=== PATIENT | female | born 1950 | race Caucasian/White ===

== ENCOUNTER → 2019-08-29 09:34 | Outpatient (CLI) | payer MEDICARE, SELFPAY ==
--- NOTE | 2019-08-29 09:59 | XR_ITS ---
PROCEDURE: XR CHEST 2V CLINICAL HISTORY: COUGH, ACUTE FEBRILE ILLNESS Cough, fever, headache COMPARISON: No exams were available for comparison FINDINGS: The cardiomediastinal silhouette and pulmonary vascularity are within normal limits. Patchy ground-glass density is present in the right upper lobe consistent with pneumonia. There may be minimal atelectasis or infiltrate the left perihilar region. There is mild wedging involving T8 which may be old. IMPRESSION: Ground-glass density in the right upper lobe consistent with pneumonia possibly viral. Atelectasis or patchy infiltrate also in the left perihilar region Dictated by: [place] Avendano MD 08/29/2019 12:13 Electronically signed by [place] Avendano MD in [place] 08/29/2019 12:13
[2019-08-29 10:10] LABS: Basophils % 0.6 % (0.1-2.0); Eosinophils # 0.1 K/mm3 (0.0-0.4); Hematocrit 39.6 % (37.0-47.0); Hemoglobin 12.4 g/dL (12.2-16.2); Lymphocytes # 0.9 K/mm3 (0.7-4.5); Mean Corpuscular HGB Conc 31.4 g/dL (31.8-35.4); Mean Corpuscular Volume 79.7 fl (81-99); Mean Platelet Volume 8.1 fl (7.4-10.4); Monocytes # 0.4 K/mm3 (0.1-1.0); Monocytes % 6.5 % (1.7-9.3); Neutrophils # 4.2 K/mm3 (1.8-7.8); Neutrophils % 75.9 % (37.0-80.0); Platelet Count 215 K/mm3 (142-424); Red Blood Count 4.97 M/mm3 (4.20-5.40); Red Cell Distribution Width 14.4 % (11.5-17.5); White Blood Count 5.6 K/mm3 (4.8-10.8)
[2019-08-29 11:50] LABS: Chloride 102 mmol/L (98-107); Potassium 5.3 mmoL/L (3.5-5.1); Sodium 137 mmol/L (136-145)
[2019-08-29 11:52] LABS: Blood Urea Nitrogen 14 mg/dl (7-17)
[2019-08-29 11:53] LABS: Alanine Aminotransferase 28 U/L (12-78); Albumin Level 3.9 g/dl (3.5-5.0); Albumin/Globulin Ratio 1.4 (1.1-1.8); Alkaline Phosphatase 83 U/L (38-126); Anion Gap 14.3 mEq/L (5-15); Aspartate Amino Transferase 38 U/L (14-36); Bilirubin,Total 0.3 mg/dl (0.2-1.3); Calcium 8.8 mg/dl (8.4-10.2); Carbon Dioxide 26 mmol/L (22.0-30.0); Estimated Glomerular Filt Rate 55 ml/min (>60); GFR (African American) 67 ML/MIN (>60); Globulin 2.7 g/dL (1.3-3.2); Glucose 120 mg/dl (74-100); Total Protein,Serum 6.6 g/dl (6.3-8.2)
== END ==
PROVIDERS: Visit Provider Internal Medicine Adolescent Medicine
DX: R50.9 Fever, unspecified (principal); R05 Cough; Z20.828 Contact with and (suspected) exposure to other viral communicable diseases
CPT/HCPCS: 36415; 71046; 80053; 85025

== ENCOUNTER → 2019-09-26 16:10 | Outpatient (CLI) | payer MEDICARE, SELFPAY ==
[2019-09-27 08:58] LABS: Covid-19 Nasal PCR Sendout Lex DETECTED
--- NOTE | 2019-09-27 09:27 | PC.NURSE ---
NOTIFIED DR. JEAN THAT [facility] REQUESTED ANOTHER COVID TEST. REPORTED POSITIVE TEST RESULTS TO . WILL FAX RESULTS TO [facility] AND HAVE THEM INFORM PATIENT.
--- NOTE | 2019-09-27 14:29 | PC.NURSE ---
Baeu notified patient of POSITIVE Covid-19 results, and further isolation instructions.
== END ==
PROVIDERS: Visit Provider Internal Medicine Adolescent Medicine
DX: Z03.818 Encounter for observation for suspected exposure to other biological agents ruled out (principal)

== ENCOUNTER → 2019-10-10 10:38 | Outpatient (CLI) | payer MEDICARE, SELFPAY ==
[2019-10-11 08:49] LABS: Covid-19 Nasal PCR Sendout Lex NOT DETECTED
--- NOTE | 2019-10-11 09:35 | PC.NURSE ---
notified pt and of negative COVID 19 results.
== END ==
PROVIDERS: Visit Provider Internal Medicine Adolescent Medicine
DX: Z03.818 Encounter for observation for suspected exposure to other biological agents ruled out (principal)
CPT/HCPCS: U0003

== ENCOUNTER 2019-12-02 17:00 | Outpatient (RCR) | payer MEDICARE, OTHER, SELFPAY ==
--- NOTE | 2019-11-09 09:48 | HMH.PTOPEV ---
PT Outpatient Evaluation Rehab PT Outpatient Evaluation Start: 11/09/19 09:28 Freq: Status: Active Protocol: Document 11/09/19 09:28 KHADAR (Rec: 11/09/19 09:48 [email or web address] [id number]) Electronically Signed By Jason Schulz, PT 11/09/19 09:28 Outpatient Therapy Subjective History Subjective History Patient is a 69 year old female presenting to outpatient PT with reports of overall deconditioning S/P COVID-19. She was initially diagnosed 09/05/19 and tested negative multiple times with the last dated 10/11/19. She reports a hx of chronic L knee pain. She was previously receiving injections which provided some significant relief. Her main concern is SOB after prolonged standing/ ambulatory activities. Comorbidities include hx of diabetes, hypothyroidism and HTN. Chief Complaint Pain,Weakness Symptom Type Ache Symptoms Relieved By Rest/Positioning Symptoms Aggravated By Standing,Physical Activity, Walking Prior Functional Limitations None Current Functional Limitations Housework,Standing,Squatting, Recreation Activity,Walking, Stairs,Balance Symptom Description Intermittent Level of pain today (0-10) 0 Pain scale - at its best (0-10) 0 Pain scale - at its worst (0-10) 6 Hip/Knee Eval Gait Observation General Gait Pattern Observation Antalgic Gait,Decrease Weight Bear (L) Assistive Device Assistive Devices None / NA Palpation Tenderness left Knee Palpation Finding Tenderness Knee Palpation Overall Comment medial compartment, patellar tendon 3/4 MMT Hip Flexion Strength Grade 4 Good Hip Abduction Strength Grade 4 Good Hip Adduction Strength Grade 4 Good Hip Extension Strength Grade 4- Good- Hip External Rotation Strength Grade 4 Good Hip Internal Rotation Strength Grade 4- Good- Knee Extension Strength Grade 4 Good Knee Flexion Strength Grade 4 Good ROM bilateral Hip ROM Reason Not Measured Within Functional Limits Knee ROM Reason Not Measured Within Functional Limits Special Tests Hip Trendelenburg Test Positive Left Knee Anterior Rick Test Negative Left Kn
== END 2019-12-02 17:05 | disposition home or self-care (01) ==
LOC: PT 17:00
PROVIDERS: PCP Internal Medicine Adolescent Medicine; Visit Provider Internal Medicine Adolescent Medicine
DX: R53.81 Other malaise (principal)
CPT/HCPCS: 97010; 97014; 97110; 97163; 97535; G0283

== ENCOUNTER → 2020-10-24 09:27 | Outpatient (CLI) | payer MEDICARE, OTHER, SELFPAY ==
[2020-10-24 09:49] LABS: Basophils # 0.1 K/mm3 (0-0.2); Basophils % 0.9 % (0.1-2.0); Eosinophils # 0.3 K/mm3 (0.0-0.4); Eosinophils % 2.8 % (0.1-12.0); Hematocrit 41.4 % (37.0-47.0); Hemoglobin 13.1 g/dL (12.2-16.2); Lymphocytes # 2.9 K/mm3 (0.7-4.5); Lymphocytes % 29.2 % (10-50); Mean Corpuscular HGB Conc 31.6 g/dL (31.8-35.4); Mean Corpuscular Hemoglobin 24.4 pg (27.0-31.2); Mean Corpuscular Volume 77.4 fl (81-99); Mean Platelet Volume 7.5 fl (7.4-10.4); Monocytes # 0.5 K/mm3 (0.1-1.0); Monocytes % 5.5 % (1.7-9.3); Neutrophils # 6.1 K/mm3 (1.8-7.8); Neutrophils % 61.6 % (37.0-80.0); Platelet Count 373 K/mm3 (142-424); Red Blood Count 5.35 M/mm3 (4.20-5.40); Red Cell Distribution Width 14.8 % (11.5-17.5); White Blood Count 9.9 K/mm3 (4.8-10.8)
[2020-10-24 10:45] LABS: Chloride 103 mmol/L (98-107); Potassium 4.5 mmoL/L (3.5-5.1); Sodium 139 mmol/L (136-145)
[2020-10-24 10:47] LABS: Blood Urea Nitrogen 17 mg/dl (7-17); Estimated Glomerular Filt Rate 83 ml/min (>60); GFR (African American) 100 ML/MIN (>60)
[2020-10-24 10:48] LABS: Alanine Aminotransferase 21 U/L (12-78); Albumin Level 4.5 g/dl (3.5-5.0); Albumin/Globulin Ratio 1.6 (1.1-1.8); Alkaline Phosphatase 111 U/L (38-126); Anion Gap 12.5 mEq/L (5-15); Aspartate Amino Transferase 28 U/L (14-36); Bilirubin,Total 0.9 mg/dl (0.2-1.3); Carbon Dioxide 28 mmol/L (22.0-30.0); Globulin 2.9 g/dL (1.3-3.2); Glucose 122 mg/dl (74-100); Total Protein,Serum 7.4 g/dl (6.3-8.2)
[2020-10-24 11:04] LABS: Free Thyroxine Index 7.7 ug/dL (5.93-13.13); T4 (Thyroxine) 20.7 ug/dl (5.53-11.0); Triiodothryronine (T3) Uptake 37 % (23.5-40.5)
[2020-10-24 11:05] LABS: 25-OH Vitamin D, Total 27.5 ng/mL (30-100)
[2020-10-24 11:11] LABS: Hemoglobin A1C 6.1 % (4.0-6.0)
[2020-10-24 11:18] LABS: Thyroid Stimulating Hormone < 0.02 uIU/mL (0.465-4.68)
== END ==
PROVIDERS: Visit Provider Internal Medicine Adolescent Medicine
DX: E11.69 Type 2 diabetes mellitus with other specified complication (principal); E55.9 Vitamin D deficiency, unspecified
CPT/HCPCS: 36415; 80053; 82306; 83036; 84436; 84443; 84479; 85025

== ENCOUNTER → 2020-12-19 12:38 | Outpatient (CLI) | payer MEDICARE, OTHER, SELFPAY ==
--- NOTE | 2020-12-19 14:28 | CT_ITS ---
PROCEDURE: CT CHEST WO CON CLINICAL INDICATION: DYSPNEA,H/O COVID SOA H/o covid in August of 2019 COMPARISON: DX XR CHEST 2V from 08/29/2019 TECHNIQUE: Axial images obtained with sagittal and coronal reformats. All CT scans at the facility use one or more dose reduction, viz: automated exposure control, ma/kV adjustment per patient size (including targeted exams where dose is matched to indication, i.e. head), or iterative reconstruction technique. FINDINGS: HEART AND MEDIASTINAL STRUCTURES: Coronary artery calcifications. No mediastinal or hilar mass. LUNGS AND PLEURAL SPACES: There is an oval 15 x 13 by 8 mm nodule in the anterior aspect of the left lower lobe centrally. A thin spiculation extends from this nodule to the pleural surface laterally and also to the pleural surface of the major fissure anteriorly with some minimal tenting of the fissure. The nodule is noncalcified. The margins are for the most part fairly well-circumscribed. Neoplasm is a consideration. PET CT suggested for further evaluation. Any old CT studies would be helpful as well. There is some slight increased subpleural markings in the lung bases posteriorly nonspecific. No effusions or areas of consolidation evident. BONY STRUCTURES: There are degenerative changes in the thoracic spine. A Schmorl's node is present along the superior endplate of T10 with slight loss of height of T10 age indeterminate. UPPER ABDOMEN: Unremarkable. ADDITIONAL FINDINGS: No other significant abnormalities. IMPRESSION: Suspicious 1.5 cm nodule in the left lower lobe as described above. Suggest PET-CT for further evaluation. Faint increased subpleural markings in the lower lobes posteriorly etiology indeterminate. High-resolution CT may provide further evaluation if clinically warranted. Dictated by: [place] Avendano MD 12/20/2020 07:41 [place] Avendano MD in [place] 12/20/2020 07:41
== END ==
PROVIDERS: PCP Internal Medicine Adolescent Medicine; Visit Provider Internal Medicine Adolescent Medicine
DX: R06.09 Other forms of dyspnea (principal); Z86.16 Personal history of COVID-19
CPT/HCPCS: 71250; 94060; 94726; 94729

== ENCOUNTER → 2021-03-22 08:59 | Outpatient (CLI) | payer MEDICARE, OTHER, SELFPAY ==
--- NOTE | 2021-03-22 09:10 | XR_ITS ---
PROCEDURE: XR DEXA AXIAL SKELETON CLINICAL HISTORY: POST MENOPAUSAL COMPARISON: No exams were available for comparison FINDINGS: The right hip BMD is 0.916 grams/centimeter squared with a T-score of -0.2. The left hip BMD is 0.802 grams/centimeter squared with a T-score of -1.1. The lumbar spine BMD is 0.949 grams/centimeters squared with a T-score of -0.9. IMPRESSION: Normal values right hip and lumbar spine, mild osteopenia left hip Based on these results a follow-up exam is recommended in 2 year. Dictated by: Dr. Tha Rodriguez MD 03/22/2021 15:08 Dr. Tha Rodriguez MD in [place] 03/22/2021 15:08
== END ==
PROVIDERS: PCP Internal Medicine Adolescent Medicine; Visit Provider Internal Medicine Adolescent Medicine
DX: Z13.820 Encounter for screening for osteoporosis (principal); Z78.0 Asymptomatic menopausal state
CPT/HCPCS: 77080

== ENCOUNTER → 2021-04-17 10:28 | Outpatient (CLI) | payer MEDICARE, OTHER, SELFPAY | PROVIDERS: PCP Radiology Diagnostic Radiology; Visit Provider Nurse Practitioner | DX: Z20.822 Contact with and (suspected) exposure to COVID-19 (principal) | CPT/HCPCS: C9803; U0003; U0005 ==

== ENCOUNTER → 2021-04-29 12:43 | Outpatient (CLI) | payer MEDICARE, OTHER, SELFPAY ==
--- NOTE | 2021-04-29 13:02 | XR_ITS ---
PROCEDURE: XR CHEST 2V CLINICAL HISTORY: BRONCHOPNEUMONIA COMPARISON: DX XR CHEST 2V from 08/29/[address] CHEST WO CON from 12/19/2020 FINDINGS: The cardiomediastinal silhouette and pulmonary vascularity are within normal limits. 2 x 1 cm nodule is present in the left mid to lower lung zone as seen on a previous CT scan of 12/19/2020. No lobar consolidation or collapse. No effusions. No acute bony abnormalities. IMPRESSION: No acute finding. 2 x 1 cm left mid to lower lung nodule as seen on previous chest CT for which further follow-up with PET CT was suggested Dictated by: [place] Avendano MD 04/29/2021 13:29 [place] Avendano MD in [place] 04/29/2021 13:29
[2021-04-29 13:22] LABS: Basophils # 0.2 K/mm3 (0-0.2); Basophils % 1.2 % (0.1-2.0); Eosinophils # 0.4 K/mm3 (0.0-0.4); Hematocrit 41.1 % (37.0-47.0); Hemoglobin 13.3 g/dL (12.2-16.2); Lymphocytes # 2.9 K/mm3 (0.7-4.5); Lymphocytes % 21.7 % (10-50); Mean Corpuscular HGB Conc 32.4 g/dL (31.8-35.4); Mean Corpuscular Hemoglobin 25.5 pg (27.0-31.2); Mean Corpuscular Volume 78.7 fl (81-99); Mean Platelet Volume 7.5 fl (7.4-10.4); Monocytes # 0.6 K/mm3 (0.1-1.0); Monocytes % 4.9 % (1.7-9.3); Neutrophils # 9.1 K/mm3 (1.8-7.8); Neutrophils % 69.3 % (37.0-80.0); Platelet Count 444 K/mm3 (142-424); Red Blood Count 5.23 M/mm3 (4.20-5.40); Red Cell Distribution Width 13.8 % (11.5-17.5); White Blood Count 13.2 K/mm3 (4.8-10.8)
[2021-04-29 15:04] LABS: Anion Gap 15.6 mEq/L (5-15); Blood Urea Nitrogen 15 mg/dl (7-17); Calcium 9.3 mg/dl (8.4-10.2); Carbon Dioxide 31 mmol/L (22.0-30.0); Chloride 96 mmol/L (98-107); Estimated Glomerular Filt Rate 71 ml/min (>60); GFR (African American) 86 ML/MIN (>60); Glucose 112 mg/dl (74-100); Potassium 4.6 mmoL/L (3.5-5.1); Sodium 138 mmol/L (136-145)
== END ==
PROVIDERS: Visit Provider Internal Medicine Adolescent Medicine
DX: J18.0 Bronchopneumonia, unspecified organism (principal)
CPT/HCPCS: 36415; 71046; 80048; 85025

== ENCOUNTER 2022-01-31 08:12 | Emergency (ER) | payer MEDICARE, OTHER, SELFPAY ==
[2022-01-31 08:34] VITALS: BP 141/76; PULSE 77; RESP 17; TEMP 36.9; O2SAT 97; BMI 35.5
--- NOTE | 2022-01-31 08:40 | HMH.EDUTC ---
[facility] [place] Clinical Impression: Bronchitis Sinusitis Qualifiers: Sinusitis location: unspecified location Chronicity: acute Recurrence: non-recurrent Qualified Code(s): J01.90 - Acute sinusitis, unspecified Disposition: Home, Self-Care Condition on Discharge: Good Instructions: DI for Sinusitis Additional Instructions: Drink plenty of fluids. Take tylenol or ibuprofen for pain or fever. Take the medications as directed. Follow up with your regular doctor. GO TO THE ER FOR ANY WORSENING SYMPTOMS Don't start the oral steroids until tomorrow, since you had the shot here today. Prescriptions: Benzonatate [Benzonatate 100mg cap] 100 mg PO TIDP PRN #30 cap PRN Reason: Cough Transmission Status: Received by [id number] methylPREDNISolone [Medrol] 4 mg PO DIRECTED 6 Days #21 packet Transmission Status: Received by [id number] Azithromycin [Z-Alan 250mg Tab*] 250 mg PO UD DOSE PK #6 tab Transmission Status: Received by [id number] Referrals: Jeison Chavez MD [Primary Care Provider] - Time of Disposition: 08:49 Medical Decision Making - Medical Records Medical records reviewed: No: I reviewed the patient's medical records. - Ho Inquiry Pt receiving controlled substance: No Vital Signs: 01/31/22 08:34 01/31/22 09:02 Temperature 98.5 F 98.5 F Temperature Source Oral Oral Pulse Rate 74 Pulse Rate [Left Radial] 77 Respiratory Rate 17 16 Blood Pressure 140/77 Blood Pressure [Right Arm] 141/76 H Blood Pressure Mean [Right Arm] 97 02 Sat by Pulse Oximetry 97 Oxygen Delivery Method Room Air Room Air Orders (Tests/Meds): ED MEDICATIONS Discontinued Medications Generic Name Dose Route Start Last Admin Trade Name Freq PRN Reason Stop Dose Admin Methylprednisolone Sodium Succinate 125 mg 01/31/22 08:44 01/31/22 08:58 Methylprednisolone Sod Succ 125mg Vial IM 01/31/22 08:45 125 mg ONCE ONE Administration [facility] [place] - General Stated complaint: congested,runny nose,headache Time Seen by Provider: 01/31/22 08:45 Mode of Arrival: Ambulatory Source of Information: Patient Limitations: No Limitations Description of Symptoms (Recalled from Triage Doc. by RN): pt to [facility] c/o congestion, non-productive cough and nasal pressure x 2 weeks. HEENT Symptoms (Recalled from RN notes): Yes Resp Symptoms (Recalled from RN notes): Yes Skin Symptoms (Recalled from RN notes): No MS Symptoms (Recalled from RN notes): No Functional Status (Recalled from RN notes): na - History of Present Illness Provider Complaint: She states that for the past 2 weeks she has had sinus congestion and a cough. She denies any fever or chills. - Related Data Home Medications Medication Instructions Recorded Confirmed metformin 500 mg tablet,extended PO 90 Days 10/07/17 08/09/21 release 24 hr acyclovir 800 mg tablet 800 mg PO PRN tab 08/09/21 08/09/21 gabapentin 100 mg capsule 100 mg PO DAILY PRN cap 08/09/21 08/09/21 hydrochlorothiazide 25 mg tablet 25 mg PO DAILY tab 08/09/21 08/09/21 levothyroxine 125 mcg tablet 125 mcg PO DAILY 08/09/21 08/09/21 omeprazole 40 mg capsule,delayed 40 mg PO PRN cap 08/09/21 08/09/21 release Previous Rx's Medication Instructions Recorded clobetasol 0.05 % topical cream 1 applic TOPICAL DAILY #60 g 08/09/21 Azithromycin [Z-Alan 250mg Tab*] 250 mg PO UD DOSE PK #6 tab 01/31/22 Benzonatate [Benzonatate 100mg 100 mg PO TIDP PRN #30 cap 01/31/22 cap] methylPREDNISolone [Medrol] 4 mg PO DIRECTED 6 Days #21 01/31/22 packet Allergies Allergy/AdvReac Type Severity Reaction Status Date / Time tramadol [From Ultram] Allergy Mild nausea Verified 08/09/21 09:23 - Worker's Comp Is this a Worker's Comp case?: No [facility] History - Hepatitis A Screen Attestation statement:: This patient has been screened for Hepatitis A risk factors. I have reviewed the patient's past medical history: Y
[2022-01-31 09:02] VITALS: BP 140/77; PULSE 74; RESP 16; TEMP 36.9; O2SAT 98
== END 2022-01-31 09:03 | disposition home or self-care (01) ==
PROVIDERS: Emergency Provider Nurse Practitioner Family; PCP Internal Medicine Adolescent Medicine
DX: J40 Bronchitis, not specified as acute or chronic (principal); J01.90 Acute sinusitis, unspecified
CPT/HCPCS: 96372; 99212; G0463

== ENCOUNTER → 2022-09-24 15:22 | Outpatient (CLI) | payer MEDICARE, OTHER, SELFPAY ==
--- NOTE | 2022-09-24 15:43 | XR_ITS ---
FINAL REPORT CLINICAL HISTORY: Nonspecific cough COMPARISON: 04/29/2021 FINDINGS: Two views of the chest were obtained. The heart size and pulmonary vascularity are within normal limits. The mediastinum is normal. There is worsening left midlung opacity which may represent a poorly defined nodule or pneumonia. There is no pneumothorax. The bony thorax is intact. IMPRESSION: Worsening left midlung opacity, may represent nodule or pneumonia. Recommend follow-up radiograph or chest CT for further evaluation. Reviewed, Interpreted and Dictated by Jeremias Fritz III, MD Transcribed by Denice Fuentes Authenticated and [facility]
[2022-09-24 16:31] LABS: Basophils # 0.1 K/mm3 (0-0.2); Basophils % 0.6 % (0.1-2.0); Eosinophils # 0.4 K/mm3 (0.0-0.4); Eosinophils % 2.4 % (0.1-12.0); Hematocrit 39.5 % (37.0-47.0); Hemoglobin 12.4 g/dL (12.2-16.2); Lymphocytes # 3.3 K/mm3 (0.7-4.5); Lymphocytes % 21.1 % (10-50); Mean Corpuscular HGB Conc 31.4 g/dL (31.8-35.4); Mean Corpuscular Hemoglobin 24.6 pg (27.0-31.2); Mean Corpuscular Volume 78.1 fl (81-99); Monocytes # 1.1 K/mm3 (0.1-1.0); Monocytes % 6.7 % (1.7-9.3); Neutrophils # 10.9 K/mm3 (1.8-7.8); Neutrophils % 69.2 % (37.0-80.0); Platelet Count 447 K/mm3 (142-424); Red Blood Count 5.05 M/mm3 (4.20-5.40); White Blood Count 15.8 K/mm3 (4.8-10.8)
[2022-09-24 16:42] LABS: MANUAL DIFFERENTIAL MANUAL DIFFERENTIAL (MANUAL DIFF)
[2022-09-24 17:00] LABS: Chloride 96 mmol/L (98-107); Potassium 4.3 mmoL/L (3.5-5.1); Sodium 138 mmol/L (136-145)
[2022-09-24 17:03] LABS: Alanine Aminotransferase 21 U/L (12-78); Albumin Level 3.8 g/dl (3.5-5.0); Albumin/Globulin Ratio 1.2 (1.1-1.8); Alkaline Phosphatase 91 U/L (38-126); Anion Gap 13.3 mEq/L (5-15); Aspartate Amino Transferase 25 U/L (14-36); Bilirubin,Total 0.4 mg/dl (0.2-1.3); Blood Urea Nitrogen 15 mg/dl (7-17); Carbon Dioxide 33 mmol/L (22.0-30.0); Estimated Glomerular Filt Rate 71 ml/min (>60); GFR (African American) 86 ML/MIN (>60); Globulin 3.3 g/dL (1.3-3.2); Total Protein,Serum 7.1 g/dl (6.3-8.2)
[2022-09-24 17:04] LABS: Calcium 8.8 mg/dl (8.4-10.2); Glucose 132 mg/dl (74-100)
[2022-09-24 17:45] LABS: Hypochromasia 1+; Lymphocytes % 30 % (10-50); Microcytosis 1+; Monocytes % 5 % (2-9); Neutrophils % 65 % (42-76); Platelet Estimate Normal; Total Cells Counted 100
== END ==
PROVIDERS: PCP Internal Medicine Adolescent Medicine; Visit Provider Internal Medicine Adolescent Medicine
DX: R05.2 Subacute cough (principal)
CPT/HCPCS: 36415; 71046; 80053; 85007; 85025

== ENCOUNTER → 2022-10-13 10:46 | Outpatient (CLI) | payer MEDICARE, OTHER, SELFPAY ==
--- NOTE | 2022-10-13 10:51 | CT_ITS ---
FINAL REPORT CLINICAL HISTORY: LEFT LOWER LOBE PNEUMONIA FINDINGS: Axial images were obtained from the lung apex to the mid abdomen by computed tomography after the administration of IV contrast. Coronal reformatted images were obtained. This study was performed with techniques to keep radiation doses as low as reasonably achievable, (ALARA). Individualized dose reduction techniques using automated exposure control or adjustment of mA and/or kV according to the patient's size were employed. There is no axillary adenopathy. There is no hilar or mediastinal adenopathy. Heart size is normal. There is no pericardial or pleural effusion. Limited images of the upper abdomen demonstrate mild fatty infiltration of the liver. There is an abnormal density in the left lower lobe measuring 1.7 cm on image 39 of series 2. This has a limb to form configuration on coronal imaging. Otherwise the lungs are clear. IMPRESSION: Lentiform density in the anterior left lower lobe is indeterminate. Based on Fleischner criteria recommend 3 month follow-up chest CT. Reviewed, Interpreted and Dictated by Ashkan Jacobsen MD Transcribed by Hay Ordonez Authenticated and [facility]
== END ==
PROVIDERS: PCP Internal Medicine Adolescent Medicine; Visit Provider Internal Medicine Adolescent Medicine
DX: R05.2 Subacute cough (principal); J18.9 Pneumonia, unspecified organism
CPT/HCPCS: 71260; Q9967

== ENCOUNTER → 2022-11-18 08:47 | Outpatient (CLI) | payer MEDICARE, OTHER, SELFPAY ==
[2022-11-18 10:23] LABS: Alanine Aminotransferase 24 U/L (12-78); Albumin Level 4.3 g/dl (3.5-5.0); Albumin/Globulin Ratio 1.6 (1.1-1.8); Alkaline Phosphatase 81 U/L (38-126); Aspartate Amino Transferase 26 U/L (14-36); Basophils # 0.1 K/mm3 (0-0.2); Bilirubin,Total 0.7 mg/dl (0.2-1.3); Blood Urea Nitrogen 16 mg/dl (7-17); Calcium 9.3 mg/dl (8.4-10.2); Carbon Dioxide 28 mmol/L (22.0-30.0); Chloride 102 mmol/L (98-107); Eosinophils # 0.3 K/mm3 (0.0-0.4); Eosinophils % 3.7 % (0.1-12.0); Estimated Glomerular Filt Rate 82 ml/min (>60); GFR (African American) 100 ML/MIN (>60); Globulin 2.7 g/dL (1.3-3.2); Glucose 122 mg/dl (74-100); Hematocrit 39.4 % (37.0-47.0); Hemoglobin 12.4 g/dL (12.2-16.2); Lymphocytes # 2.1 K/mm3 (0.7-4.5); Lymphocytes % 24.4 % (10-50); Mean Corpuscular HGB Conc 31.4 g/dL (31.8-35.4); Mean Corpuscular Hemoglobin 24.6 pg (27.0-31.2); Mean Corpuscular Volume 78.6 fl (81-99); Mean Platelet Volume 7.3 fl (7.4-10.4); Monocytes # 0.7 K/mm3 (0.1-1.0); Monocytes % 8.7 % (1.7-9.3); Neutrophils # 5.3 K/mm3 (1.8-7.8); Neutrophils % 62.3 % (37.0-80.0); Platelet Count 304 K/mm3 (142-424); Red Blood Count 5.02 M/mm3 (4.20-5.40); Red Cell Distribution Width 14.9 % (11.5-17.5); Sodium 142 mmol/L (136-145); White Blood Count 8.5 K/mm3 (4.8-10.8)
[2022-11-18 10:31] LABS: Hemoglobin A1C 6.1 % (4.0-6.0)
[2022-11-18 10:40] LABS: 25-OH Vitamin D, Total 41.8 ng/mL (30-100); Triiodothryronine (T3) Uptake 28 % (23.5-40.5)
[2022-11-18 10:41] LABS: Free Thyroxine Index 4.3 ug/dL (5.93-13.13); T4 (Thyroxine) 15.3 ug/dl (5.53-11.0)
[2022-11-18 10:54] LABS: Thyroid Stimulating Hormone 0.02 uIU/mL (0.465-4.68)
== END ==
PROVIDERS: PCP Internal Medicine Adolescent Medicine; Visit Provider Internal Medicine Adolescent Medicine
DX: E11.69 Type 2 diabetes mellitus with other specified complication (principal); E55.9 Vitamin D deficiency, unspecified; E03.9 Hypothyroidism, unspecified; Z79.84 Long term (current) use of oral hypoglycemic drugs
CPT/HCPCS: 36415; 80053; 82306; 83036; 84436; 84443; 84479; 85025

== ENCOUNTER → 2023-01-09 09:09 | Outpatient (CLI) | payer MEDICARE, OTHER, SELFPAY ==
[2023-01-09 10:18] LABS: Blood Urea Nitrogen 14 mg/dl (7-17); Estimated Glomerular Filt Rate 82 ml/min (>60); GFR (African American) 100 ML/MIN (>60)
== END ==
PROVIDERS: PCP Internal Medicine Adolescent Medicine; Visit Provider Internal Medicine Adolescent Medicine
DX: J18.9 Pneumonia, unspecified organism (principal)
CPT/HCPCS: 36415; 82565; 84520

== ENCOUNTER → 2023-01-16 13:03 | Outpatient (CLI) | payer MEDICARE, OTHER, SELFPAY ==
--- NOTE | 2023-01-16 13:07 | CT_ITS ---
FINAL REPORT CLINICAL HISTORY: ABN CHEST CT COMPARISON: 10/13/2022 FINDINGS: Axial CT images of the chest were obtained with contrast. Coronal and sagittal reformatted images were also obtained. This study was performed with techniques to keep radiation doses as low as reasonably achievable, (ALARA). Individualized dose reduction techniques using automated exposure control or adjustment of mA and/or KV according to the patient's size were employed. There is no evidence of mediastinal or hilar mass or adenopathy. No axillary mass or adenopathy is identified. There is a 15 mm left lower lobe nodule/opacity which has been stable since 12/19/2020. No new masses or nodules are identified. Mild bibasilar atelectasis or scar is present. Limited images of the upper abdomen reveal nonspecific wall thickening of the gallbladder. IMPRESSION: 15 mm left lower lobe nodule/opacity stable since December 2020 consistent with a benign nodule. Nonspecific wall thickening of the gallbladder. Reviewed, Interpreted and Dictated by Jeremias Fritz III, MD Transcribed by Karis Bush Authenticated and [facility]
== END ==
PROVIDERS: PCP Internal Medicine Adolescent Medicine; Visit Provider Internal Medicine Adolescent Medicine
DX: R93.89 Abnormal findings on diagnostic imaging of other specified body structures (principal)
CPT/HCPCS: 71260; Q9967

== ENCOUNTER 2023-04-30 09:36 | Emergency (ER) | payer MEDICARE, OTHER, SELFPAY ==
--- OUTSIDE RECORDS SUMMARY | 2023-04-30 09:40 | XMS_ITS ---
Author Name Unknown Address [address] [place] [address] [place] [address] Phone Organization [facility] Address [address] [place] [address] Phone Care Team Providers Care Client Server Programmer Name Role Phone TED CAMPOVERDE, BULL Unavailable [phone] Flaco CAMPOVERDE, Dae Berrios Unavailable [phone] Problems Includes: Active, inactive, and resolved Problems All Visits Onset Date Resolved Date Provider Condition S tatus Joint Pain in the Right Knee 01/22/2023 Dae Sam MD Active Plan of Treatment Pending Tests Order Diagnosis Results Due Ordering P rovider Radiology - MRI MRI Knee Pain in right knee 02/05/23 C laine Sam MD Future Appointments Date Time Location Provi gem Follow Up 04/18/2024 10:30AM [facility] Scott Edge PA-C Instructions to patient Lose weight Last Documented On 3 8:49AM ; [facility] Lose weight Last Documented On 3 8:30AM ; [facility] Lose weight Last Documented On 3 2:32PM ; [facility], [facility] Assessments Includes: Assessments for all patient encounters Findings Encounter Date Overweight Physician Specified with Natasha Sam MD 01/22/2023
--- OUTSIDE RECORDS SUMMARY | 2023-04-30 09:40 | XMS_ITS | Clinical Summary ---
Author Name Unknown Address [address] [place] [address] [place] [address] Phone Organization [facility] , [facility] Address [address] [place] [address] Phone Care Team Providers Care Coding Coordinator Name Role Phone TED CAMPOVERDE, BULL Unavailable [phone] Flaco CAMPOVERDE, Dae Berrios Unavailable [phone] Reason for Visit and Chief Complaint [Patient Encounter] Problems Includes: Problems addressed during this encounter and other active Problems All Visits Onset Date Resolved Date Provider Condition S tatus Joint Pain in the Right Knee 01/22/2023 Dae Sam MD Active Plan of Treatment Pending Tests Order Diagnosis Results Due Ordering P rovider Radiology - MRI MRI Knee Pain in right knee 02/05/23 C laine Sam MD Future Appointments Date Time Location Provi gem Follow Up 04/18/2024 10:30AM [facility] Scott Edge PA-C Assessments Includes: Assessments from this encounter No Assessments Recorded Medical Equipment - Implanted Devices Includes: Current Devices No Medical Equipment Recorded Medications Includes: Medications discussed during this encounter and other current Medications Current Medications (continue as prescribed) Colace 100 MG Oral Capsule 03/03/2023 - 06/01/2023 Provider: Dae house MD Diagnosis: 1-2 tabs daily
--- OUTSIDE RECORDS SUMMARY | 2023-04-30 09:40 | XMS_ITS | Clinical Summary ---
Author Name Unknown Address [address] [place] [address] [place] [address] Phone Organization [facility] Address [address] [place] [address] Phone Care Team Providers Care Senior Environmental Scientist Name Role Phone TED CAMPOVERDE, BULL Unavailable [phone] Flaco CAMPOVERDE, Dae Berrios Unavailable [phone] Reason for Visit and Chief Complaint The Chief Complaint is: 1st po R arthroplasty vs TKA Problems Includes: Problems addressed during this encounter and other active Problems All Visits Onset Date Resolved Date Provider Condition S tatus Joint Pain in the Right Knee 01/22/2023 Dae Sam MD Active Plan of Treatment Fall Risk Assessment: This patient has been identified as a fall risk. Balance/gait along with postural blood pressure, vision and home fall hazards have been assessed. Medications have been reviewed, and recommendations made with regard to contributing factors for future falls. Plan of care: Consideration of vitamin D supplementation along with balance and strength training with consideration for formal physical therapy has been discussed with the patient. - Last Documented On 03/19/2023 9:21AM ; [facility] Patient overall doing fairly well. Continue with physical therapy and home exercise program. May gradually progress to activity as tolerated starting in 2 weeks. Continue to adhere to our postoperative protocols. Follow-up in the office in 6 weeks - Last Documented On 03/19/2023 9:21AM ; [facility], [facility] Future Appointments Date Time Location Provi gem Follow Up 04/18/2024 10:30AM [facility] Scott Edge PA-C Instructions to patient Lose weight
--- OUTSIDE RECORDS SUMMARY | 2023-04-30 09:40 | XMS_ITS | Clinical Summary ---
Author Name Unknown Address [address] [place] [address] [place] [address] Phone Organization [facility] , [facility] Address [address] [place] [address] Phone Care Team Providers Care Neurological Surgeon Name Role Phone TED CAMPOVERDE, BULL Unavailable [phone] Flaco CAMPOVERDE, Dae Berrios Unavailable [phone] Reason for Visit and Chief Complaint The Chief Complaint is: PO R arthroplasty vs TKA Problems Includes: Problems [...] with the patient. - Last Documented On 04/21/2023 9:18AM ; [facility], [facility] Patient overall doing fairly well. Continue with physical therapy and home exercise program. May gradually progress to activity as tolerated. Follow-up in the office in 1 year with repeat x-ray - Last Documented On 04/21/2023 9:18AM ; [facility], [facility] Future Appointments Date Time Location Provi gem Follow Up 04/18/2024 10:30AM [facility] Scott Edge PA-C Instructions to patient Lose weight Last Documented On 3
--- OUTSIDE RECORDS SUMMARY | 2023-04-30 09:40 | XMS_ITS ---
Care Plan - [facility], [facility] Created on: April 30, 2023 Lela Paige : 1950 Sex: Female Author Name Unknown Address [address] [place] [address] [place] [address] Phone Organization [facility] , [facility] Address [address] [place] [address] Phone Care Team Providers Care Bowstring Maker Name Role Phone TED CAMPOVERDE, BULL Unavailable [phone] Flaco CAMPOVERDE, Dae Berrios Unavailable [phone]
--- OUTSIDE RECORDS SUMMARY | 2023-04-30 09:41 | XMS_ITS | Clinical Summary ---
Author Name Unknown Address [address] [place] [address] [place] [address] Phone Organization [facility] , [facility] Address [address] [place] [address] Phone Care Team Providers Care Health Officer Name Role Phone TED CAMPOVERDE, BULL Unavailable [phone] Flaco CAMPOVERDE, Dae Berrios Unavailable [phone] Reason for Visit and Chief Complaint [Patient [...] Location Provi gem Follow Up 04/18/2024 10:30AM [facility] Scott Edge PA-C Assessments Includes: Assessments [...]
--- OUTSIDE RECORDS SUMMARY | 2023-04-30 09:41 | XMS_ITS | Clinical Summary ---
Author Name Unknown Address [address] [place] [address] [place] [address] Phone Organization [facility] , [facility] Address [address] [address] Phone Care Team Providers Care Video Technician Name Role Phone TED CAMPOVERDE, BULL Unavailable [phone] Flaco CAMPOVERDE, Dae Berrios Unavailable [phone] Reason for Visit and Chief Complaint [facility] Problems Includes: Problems addressed during this encounter [...] Location Provi gem Follow Up 04/18/2024 10:30AM [facility] Scott Edge PA-C Assessments Includes: Assessments from this encounter No Assessments Recorded Medical Equipment - Implanted Devices Includes: Current Devices No Medical Equipment Recorded Medications Includes: Medications discussed during this encounter and other current Medications Current Medications (continue as prescribed) Colace 100 MG Oral Capsule 03/03/2023 - 06/01/2023 Provider: Dae house MD Diagnosis: 1-2 tabs daily
[2023-04-30 09:50] VITALS: BP 162/58; PULSE 95; RESP 20; TEMP 37.6; O2SAT 93; BMI 33.9
--- NOTE | 2023-04-30 10:03 | EXP.UTC ---
Discharge Plan Disposition Patient Disposition: Home, Self-Care Condition: Good Prescriptions Prescriptions: New azithromycin [Zithromax Z-Alan] 250 mg tablet See Rx Instructions .ROUTE .COMPLEX 5 Days Qty: 6 0RF Rx Instructions: For 250 mg dose pack: take 500 mg today (day 1), then 250 mg for 4 days (days 2-5) No Action metformin 500 mg tablet extended release 24 hr 500 mg PO BID 90 Days hydrochlorothiazide 25 mg tablet 25 mg PO DAILY levothyroxine 100 mcg tablet 100 mcg PO DAILY Patient Comments: TAKE 1 TABLET BY MOUTH ONCE DAILY Referrals Follow up/Referrals: Jeison Chavez MD [Primary Care Provider] - See instructions Activity Restrictions/Add. Instructions Additional Instructions/Restrictions: *Monitor Temp, Over the counter Motrin or Tylenol as directed/as needed Tylenol every 4 hours and Motrin every 6 hours (as long as your family doctor has told you that you can take it) for fever or pain. and straight to ER if unable to lower temp less than 101.0 after medication given *Warm salt water gargles may help to soothe the throat *Throat Lozenges? *Warm fluids like tea with honey may help to soothe the throat? *Sleep elevated *Humidifier/Vaporizer *Flonase 2 sprays in each nostril daily but be aware that it may take 2-3 days before you notice improvement *Bromfed may cause drowsiness. Know how it effects you (your child) before driving, caring for small child, or sending your child to school. Not other antihistamines/allergy medications while taking bromfed Your throat swab was sent for culture. Those results are typically sent to your primary care. Be sure to follow up in 2-3 days with your family doctor/primary care physician if no improvement so they can review those result and treat if necessary. If you don?t have a primary care doctor, I recommend you get one but in the mean time, you will have to return to a walk in clinic Follow up IMMEDIATELY for new or worsening symptoms or no Noticeable improvement over the next 48-72 hours. 911 for difficulty breathing or swallowing You were tested for today for COVID19 your test result should be back in the next 24 You may check your results on the [facility] My Health Portal if it is positive you will need to Quarantine for 5 days per the CDC Recommendations Clinical Impressions Clinical Impression: Sinusitis Qualifiers: Sinusitis location: unspecified location Chronicity: unspecified Qualified Code(s): J32.9 - Chronic sinusitis, unspecified Instructions Patient Instructions: Sinusitis, DI for Sinusitis Discharge ED Provider: Dalia Leyva [facility] [place] HPI General Stated complaint: fever, cough, congestion, sinus pressure Mode of Arrival: Ambulatory Source of Information: Patient Limitations: No Limitations Time Seen by Provider: 04/30/23 10:05 Description of Symptoms (Recalled from Triage Doc. by RN): PATIENT C/O FEVER, HEADACHE, AND FACIAL PAIN X 2 DAYS HEENT Symptoms (Recalled from RN notes): Yes Resp Symptoms (Recalled from RN notes): No Skin Symptoms (Recalled from RN notes): No MS Symptoms (Recalled from RN notes): No Functional Status (Recalled from RN notes): WNL History of Present Illness Provider Complaint: Patient states that she gets a bad sinus infection about this time every year States that she has been having sinus congestion and pressure that has got worse over the last couple of days State that she comes in when it gets like this and gets a shot and a zpack to help clear her up Also has a family gathering this weekend and wants to get a COVID test to make sure sure she is ok to go Related Data Home Medications Medication Instructions Recorded Confirmed metformin 500 mg tablet,extended 500 mg PO BID Diabetes 90 days 10/07/17 04/30/23 release 24 hr hydrochlorothiazide 25 mg tablet 25 mg PO DAILY 08/09/21 04/30/23 levothyroxine 100 mcg tablet 100 mcg PO DAILY 04/30/23
[2023-04-30 10:30] VITALS: BP 162/58; PULSE 95; RESP 20; TEMP 37.6; O2SAT 97
== END 2023-04-30 10:38 | disposition home or self-care (01) ==
PROVIDERS: Emergency Provider Nurse Practitioner; PCP Internal Medicine Adolescent Medicine
DX: U07.1 COVID-19 (principal); J01.90 Acute sinusitis, unspecified; R50.9 Fever, unspecified; R05.9 Cough, unspecified; R09.81 Nasal congestion; E11.9 Type 2 diabetes mellitus without complications; Z79.84 Long term (current) use of oral hypoglycemic drugs
CPT/HCPCS: 87635; 96372; 99212; 99214; G0463

== ENCOUNTER 2023-08-31 10:24 | Outpatient (CLI) | payer MEDICARE, OTHER, SELFPAY ==
--- NOTE | 2023-08-31 10:35 | XR_ITS ---
FINAL REPORT CLINICAL HISTORY: LEFT CLAVICAL BONY MASS..no trauma COMPARISON: None FINDINGS: LEFT CLAVICLE: 2 views of the right clavicle reveal mild acromioclavicular degenerative change. There may be a small acromioclavicular joint effusion or a soft tissue mass. No acute bony abnormality is identified. No fracture is present. IMPRESSION: Small acromioclavicular joint effusion or soft tissue mass. MRI of the shoulder could further evaluate as clinically indicated. Reviewed, Interpreted and Dictated by Jeremias Fritz III, MD Transcribed by Karis Bush Authenticated and [facility]
== END 2023-08-31 23:59 ==
PROVIDERS: PCP Internal Medicine Adolescent Medicine; Visit Provider Internal Medicine Adolescent Medicine
DX: R22.2 Localized swelling, mass and lump, trunk (principal)
CPT/HCPCS: 73000

== ENCOUNTER → 2023-10-27 13:02 | Outpatient (CLI) | payer MEDICARE, OTHER, SELFPAY | LOC: SL 13:03 | PROVIDERS: PCP Internal Medicine Adolescent Medicine; Visit Provider Internal Medicine Adolescent Medicine | DX: G47.36 Sleep related hypoventilation in conditions classified elsewhere (principal); R06.83 Snoring | CPT/HCPCS: G0399 ==

== ENCOUNTER 2024-01-14 11:53 | Emergency (ER) | payer MEDICARE, OTHER, SELFPAY ==
[2024-01-14 12:22] VITALS: BP 187/71; PULSE 59; RESP 16; TEMP 37; O2SAT 98; BMI 32.8
--- NOTE | 2024-01-14 12:34 | ED_ITS ---
Discharge Plan Disposition Patient Disposition: Home, Self-Care Condition: Good Prescriptions Prescriptions: New benzonatate 100 mg capsule 100 mg PO TIDP PRN (Reason: Cough) Qty: 30 0RF methylprednisolone 4 mg Tablets,Dose Pack 4 mg PO DIRECTED 6 Days Qty: 21 0RF Rx Instructions: Take 1 pack as directed for 6 days azithromycin [Zithromax] 250 mg tablet 250 mg PO UD DOSE PK Qty: 6 0RF Rx Instructions: Take two (2) tablets today, then one (1) tablet days #2 thru #5 No Action metformin 500 mg tablet extended release 24 hr 500 mg PO BID 90 Days hydrochlorothiazide 25 mg tablet 25 mg PO DAILY levothyroxine 100 mcg tablet 100 mcg PO DAILY Patient Comments: TAKE 1 TABLET BY MOUTH ONCE DAILY azithromycin [Zithromax Z-Alan] 250 mg tablet See Rx Instructions .ROUTE .COMPLEX 5 Days Qty: 6 0RF Rx Instructions: For 250 mg dose pack: take 500 mg today (day 1), then 250 mg for 4 days (days 2-5) Referrals Follow up/Referrals: Jeison Chavez MD [Primary Care Provider] - See instructions Activity Restrictions/Add. Instructions Additional Instructions/Restrictions: Drink plenty of fluids. Take tylenol or ibuprofen for pain or fever. Take the medications as directed. Follow up with your regular doctor. GO TO THE ER FOR ANY WORSENING SYMPTOMS Clinical Impressions Clinical Impression: Sinusitis Qualifiers: Sinusitis location: unspecified location Chronicity: unspecified Qualified Code(s): J32.9 - Chronic sinusitis, unspecified Instructions Patient Instructions: Sinusitis, DI for Sinusitis Print Language Print Language: Ivorian Discharge ED Provider: Ifeanyi Olson [facility] General Stated complaint: congestion, cough, drainage Mode of Arrival: Ambulatory Source of Information: Patient Limitations: No Limitations Time Seen by Provider: 01/14/24 12:32 Description of Symptoms (Recalled from Triage Doc. by RN): pt c/o nasal congestion and yellow drainage ongoing since 01/06 HEENT Symptoms (Recalled from RN notes): Yes Resp Symptoms (Recalled from RN notes): No Skin Symptoms (Recalled from RN notes): No MS Symptoms (Recalled from RN notes): No Functional Status (Recalled from RN notes): wnl Related Data Home Medications ?Medication ?Instructions ?Recorded ?Confirmed metformin 500 mg tablet,extended 500 mg PO BID Diabetes 90 days 04/25/18 11/16/23 release 24 hr hydrochlorothiazide 25 mg tablet 25 mg PO DAILY 08/09/21 04/30/23 levothyroxine 100 mcg tablet 100 mcg PO DAILY 04/30/23 04/30/23 Previous Rx's ?Medication ?Instructions ?Recorded azithromycin 250 mg tablet See Rx Instructions PO .COMPLEX 5 04/30/23 (Zithromax Z-Alan) days #6 tabs azithromycin 250 mg tablet 250 mg PO UD DOSE PK #6 tabs 01/14/24 (Zithromax) benzonatate 100 mg capsule 100 mg PO TIDP PRN Cough #30 caps 01/14/24 methylprednisolone 4 mg tablets in 4 mg PO DIRECTED 6 days #21 tabs 01/14/24 a dose pack Allergies Allergy/AdvReac Type Severity Reaction Status Date / Time tramadol [From Ultram] AdvReac Mild nausea Verified 01/14/24 12:26 Worker's Comp Is this a Worker's Comp case?: No PFS PFS Disclaimer: The information contained in this section may have been updated after the patient was seen, as this information can be updated by other users. Surgical History (Updated 07/11/22 @ 18:07 by Digna Morin MD) History of knee replacement History of partial hysterectomy Family History (Updated 07/11/22 @ 10:10 by NOLAN Zhu) Sister Cancer Social History Smoking Status: Never smoker alcohol intake: never substance use type: denies use current occupational status: retired Travel in the last 8 weeks: None ROS Obtained: Yes All systems reviewed & no additional complaints except as documented Constitutional Constitutional: Reports poor appetite Eyes Eyes: Reports system reviewed and no additional complaints, except as documented ENT Ears, Nose, Mouth, and Throat: Reports as per HPI Cardiovascular Cardiovascular: Reports system reviewed and no additional complaints, except as documented and Denies chest pain Respiratory Respiratory: Denies shortness of breath, Denies chest congestion, Reports cough, Denies stridor and Denies wheezing Gastrointestinal Gastrointestingal: Reports system reviewed and no additional complaints, except as documented; Denies abdominal pain, diarrhea or vomiting Musculoskeletal Musculoskeletal: Reports system reviewed and no additional complaints, except as documented and Denies arthralgias Integumentary/Breasts Skin/Breast: Reports system reviewed and no additional complaints, except as documented and Denies rash Neurologic Neurologic: Denies paresthesias Allergic/Immunologic Allergic/Immunologic: Denies wheezing Physical Exam General General appearance: alert and in no apparent distress Eye Eye exam: Present normal appearance, PERRL and EOMI ENT ENT exam: Present mucous membranes moist and normal external ear exam Expanded ENT Exam External ear exam: Present normal external inspection TM/Canal exam: Bilateral TM: erythema and bulging Nose exam: Absent sinus tenderness Nasal speculum exam: Bilateral: normal Mouth exam: Present normal external inspection; Absent drooling Teeth exam: Present normal inspection Throat exam: Present tonsillar erythema and tonsillomegaly Neck Neck exam: Present normal inspection, full ROM and trachea midline; Absent tenderness, lymphadenopathy or thyromegaly Chest Chest inspection: Present normal inspection and symmetric chest wall rise; Absent tenderness or rash Respiratory Respiratory exam: Present normal lung sounds bilaterally; Absent respiratory distress, wheezes, stridor or accessory muscle use Cardiovascular Cardiovascular exam: Present regular rate, normal rhythm and normal heart sounds Abdominal Exam Abdominal exam: Present soft; Absent distention, tenderness, guarding, rebound or rigidity Extremities Exam Extremities exam: Present normal inspection, full ROM and normal capillary refill; Absent tenderness or calf tenderness Back Exam Back exam: Present normal inspection and full ROM; Absent tenderness Neurological Exam Neurological exam: Present alert and oriented X3 Psychiatric Psychiatric exam: Present normal affect and normal mood Skin Skin exam: Present warm, dry, intact and normal color Lymphatic Lymphatic Findings: no adenopathy Medical Decision Making Medical Records Medical records reviewed: No I reviewed the patient's medical records. Ho Inquiry Pt receiving controlled substance: No Vital Signs: 01/14/24 12:22 Temperature 98.6 F Temperature Source Oral Pulse Rate [Left] 59 L Respiratory Rate 16 Blood Pressure [Right Arm] 187/71 H Blood Pressure Mean [Right Arm] 109 Blood Pressure Source [Right Arm] Automatic Cuff Blood Pressure Position [Right Arm] Sitting 02 Sat by Pulse Oximetry 98 Oxygen Delivery Method Room Air
[2024-01-14 12:49] VITALS: BP 187/71; PULSE 59; RESP 16; TEMP 37
== END 2024-01-14 12:49 | disposition home or self-care (01) ==
PROVIDERS: Emergency Provider Nurse Practitioner Family; PCP Internal Medicine Adolescent Medicine
DX: J01.90 Acute sinusitis, unspecified (principal); R05.9 Cough, unspecified; R09.82 Postnasal drip
CPT/HCPCS: 99212; 99214; G0463

== ENCOUNTER 2024-05-23 08:57 | Emergency (ER) | payer MEDICARE, OTHER, SELFPAY ==
[2024-05-23 09:16] VITALS: BP 174/70; PULSE 70; RESP 18; TEMP 36.7; O2SAT 96; BMI 34.9
--- NOTE | 2024-05-23 09:18 | ED_ITS ---
Discharge Plan Disposition Patient Disposition: Home, Self-Care Condition: Good Prescriptions Prescriptions: New azithromycin [Zithromax Z-Alan] 250 mg tablet See Rx Instructions .ROUTE .COMPLEX 5 Days Qty: 6 0RF Rx Instructions: For 250 mg dose pack: take 500 mg today (day 1), then 250 mg for 4 days (days 2-5) No Action hydrochlorothiazide 25 mg tablet 25 mg PO DAILY alprazolam 0.5 mg tablet 0.5 mg PO PRN levothyroxine 150 mcg tablet 150 mcg PO DAILY acyclovir 800 mg tablet 800 mg PO PRN Patient Comments: TAKE 1 TABLET BY MOUTH 4 TIMES DAILY FOR 10 DAYS nitrofurantoin monohyd/m-cryst [Macrobid] 100 mg capsule 100 mg PO BID 7 Days Qty: 14 0RF Rx Instructions: must administer with a meal/food testosterone 20.25 mg/1.25 gram (1.62 %) gel in metered-dose pump 1 pump topical DAILY Qty: 75 0RF Rx Instructions: apply 1 pump amount daily in the morning on clean dry skin over ONE upper arm or inner thigh Referrals Follow up/Referrals: Jeison Chavez MD [Primary Care Provider] - See instructions Activity Restrictions/Add. Instructions Additional Instructions/Restrictions: *Monitor Temp, Over the counter Motrin or Tylenol as directed/as needed Tylenol every 4 hours and Motrin every 6 hours (as long as your family doctor has told you that you can take it) for fever or pain. and straight to ER if unable to lower temp less than 101.0 after medication given *Warm salt water gargles may help to soothe the throat *Throat Lozenges? *Warm fluids like tea with honey may help to soothe the throat? *Sleep elevated *Humidifier/Vaporizer Take medication as prescribed Follow up IMMEDIATELY for new or worsening symptoms or no Noticeable improvement over the next 48-72 hours. 911 for difficulty breathing or swallowing Clinical Impressions Clinical Impression: Sinusitis Qualifiers: Sinusitis location: unspecified location Chronicity: unspecified Qualified Code(s): J32.9 - Chronic sinusitis, unspecified Instructions Patient Instructions: Sinusitis, Sinus Headache Print Language Print Language: Spanish Discharge ED Provider: Dalia Leyva [facility] HPI General Stated complaint: sinus pressure, drainage, Mode of Arrival: Ambulatory Source of Information: Patient Time Seen by Provider: 05/23/24 09:18 Description of Symptoms (Recalled from Triage Doc. by RN): CONGESTION , COUGH HEENT Symptoms (Recalled from RN notes): No Resp Symptoms (Recalled from RN notes): Yes Skin Symptoms (Recalled from RN notes): No MS Symptoms (Recalled from RN notes): No Functional Status (Recalled from RN notes): WNL History of Present Illness Provider Complaint: Patient states that she has a bad sinus infection, states that she is having sinus pain and pressure, a little cough and pressure behind her eyes like she gets when she has a sinus infection so she came in to get a steriod shot and some medication for the infection Related Data Home Medications ?Medication ?Instructions ?Recorded ?Confirmed hydrochlorothiazide 25 mg tablet 25 mg PO DAILY 08/09/21 05/23/24 acyclovir 800 mg tablet 800 mg PO PRN 03/17/24 03/17/24 alprazolam 0.5 mg tablet 0.5 mg PO PRN 03/17/24 03/17/24 levothyroxine 150 mcg tablet 150 mcg PO DAILY 03/17/24 05/23/24 Previous Rx's ?Medication ?Instructions ?Recorded nitrofurantoin 100 mg PO BID 7 days #14 caps 03/17/24 monohydrate/macrocrystals 100 mg capsule (Macrobid) testosterone 1 pump topical DAILY #75 grams 03/17/24 azithromycin 250 mg tablet See Rx Instructions PO .COMPLEX 5 05/23/24 (Zithromax Z-Alan) days #6 tabs Allergies Allergy/AdvReac Type Severity Reaction Status Date / Time tramadol (From Ultram) AdvReac Mild nausea Verified 03/17/24 10:49 Worker's Comp Is this a Worker's Comp case?: No [facility] Disclaimer: The information contained in this section may have been updated after the patient was seen, as this information can be updated by other users. Medical History (Updated 05/23/24 @ 09:22 by Dalia Leyva APRN) UTI (urinary tract infection) Decreased libido without sexual dysfunction Hypothyroidism Lichen sclerosus Surgical History (Updated 03/17/24 @ 11:03 by NOLAN Barnett) History of tonsillectomy History of knee replacement History of partial hysterectomy Family History Sister Cancer Breast Social History Smoking Status: Never smoker alcohol intake: never substance use type: denies use current occupational status: retired Travel in the last 8 weeks: None ROS Obtained: Yes All systems reviewed & no additional complaints except as documented and Yes Systems reviewed as appropriate & no additional complaints except as documented Constitutional Constitutional: Reports system reviewed and no additional complaints, except as documented and Reports as per HPI ENT Ears, Nose, Mouth, and Throat: Reports system reviewed and no additional complaints, except as documented, Reports as per HPI, Reports sinus pain and Reports sinus pressure Respiratory Respiratory: Reports system reviewed and no additional complaints, except as documented, Reports as per HPI and Reports cough Gastrointestinal Gastrointestingal: Reports system reviewed and no additional complaints, except as documented and as per HPI Physical Exam General General appearance: alert and in no apparent distress ENT ENT exam: Present mucous membranes moist Expanded ENT Exam Nose exam: Present sinus tenderness Throat exam: Present other (PND noted) Respiratory Respiratory exam: Present normal lung sounds bilaterally; Absent respiratory distress or wheezes Cardiovascular Cardiovascular exam: Present regular rate, normal rhythm and normal heart sounds Abdominal Exam Abdominal exam: Present soft and normal bowel sounds; Absent distention or tenderness Neurological Exam Neurological exam: Present alert, oriented X3 and normal gait Medical Decision Making Medical Records Screening: Per USPSTF and CDC recommendations, given the prevalence of disease in our region, it is our hospital?s policy to screen for HIV and viral Hepatitis for all patients aged 18 and over and those with ongoing risk factors. Ho Inquiry Pt receiving controlled substance: No Ho was queried for this patient: No Vital Signs: 05/23/24 09:16 Temperature 98.0 F Temperature Source Oral Pulse Rate [Right Radial] 70 Respiratory Rate 18 Blood Pressure [Left Arm] 174/70 H Blood Pressure Mean [Left Arm] 104 02 Sat by Pulse Oximetry 96
[2024-05-23] MEDS: METHYLPREDNISOLONE SOD SUCC 125MG VIAL 125 MG IM (09:26)
[2024-05-23 09:35] VITALS: BP 174/70; PULSE 70; RESP 18; TEMP 36.7
== END 2024-05-23 09:36 | disposition home or self-care (01) ==
PROVIDERS: Emergency Provider Nurse Practitioner; PCP Internal Medicine Adolescent Medicine
DX: J32.9 Chronic sinusitis, unspecified (principal); R09.81 Nasal congestion; R05.9 Cough, unspecified
CPT/HCPCS: 99212; G0381; J2919

== ENCOUNTER 2024-08-04 05:36 | Emergency (ER) | payer MEDICARE, OTHER, SELFPAY ==
[2024-08-04 05:37] VITALS: BP 206/76; PULSE 91; RESP 20; TEMP 37.1; O2SAT 97; BMI 34.7
[2024-08-04 05:54] VITALS: BP 138/62; PULSE 80; RESP 18; TEMP 36.8; O2SAT 96
[2024-08-04 06:01] VITALS: BP 138/62; PULSE 86; O2SAT 99
--- NOTE | 2024-08-04 06:14 | ED_ITS ---
Discharge Plan Disposition Patient Disposition: Home, Self-Care Prescriptions Prescriptions: No Action hydrochlorothiazide 25 mg tablet 25 mg PO DAILY alprazolam 0.5 mg tablet 0.5 mg PO NEEDED PRN (Reason: Anxiety) levothyroxine 150 mcg tablet 150 mcg PO DAILY acyclovir 800 mg tablet 800 mg PO NEEDED PRN (Reason: As needed) Patient Comments: TAKE 1 TABLET BY MOUTH 4 TIMES DAILY FOR 10 DAYS cholecalciferol (vitamin D3) 25 mcg (1,000 unit) capsule 25 mcg PO DAILY cyanocobalamin (vitamin B-12) 1,000 mcg capsule 1,000 mcg PO DAILY Referrals Follow up/Referrals: Jeison Chavez MD [Primary Care Provider] - See instructions Activity Restrictions/Add. Instructions Additional Instructions/Restrictions: Please follow-up with your primary care provider. Please return to the emergency department if you develop any new or worsening symptoms or become concerned for your health. Clinical Impressions Clinical Impression: Swelling of both parotid glands, Dry mouth Print Language Print Language: [place] Discharge ED Provider: Niko Simmons Adult HPI General Chief complaint: Headache Stated complaint: dehydrated, facial swelling, trouble breathing Time Seen by Provider: 08/04/24 05:50 Mode of Arrival: Ambulatory Source of Information: Patient Limitations: No Limitations Description of Symptoms (Recalled from ER Triage Doc. by RN): Pt presents to ED with complaints of headache, dryness (dehydration), and swollen lymph nodes. Pt states she just feels dry. Pt has no other complaints. Pt is A&O*4 and denies pain. Pt states she started a new med 2 days ago (Nitrofurantoin) and she's concerned that may have something to do with her symptoms. VSS & is bedside. History of Present Illness HPI narrative: 73-year-old female with history of hypertension diabetes and hypothyroidism presents for bilateral jaw swelling and dry mouth. She reports it has been present since yesterday. She thinks she feels dehydrated, but her only symptom is dry mouth. She has had intermittent headache and had a temperature at home over 100. She denies any cough chest pain shortness of breath abdominal pain your urinary symptoms. Related Data Home Medications ?Medication ?Instructions ?Recorded ?Confirmed hydrochlorothiazide 25 mg tablet 25 mg PO DAILY 08/09/21 08/04/24 acyclovir 800 mg tablet 800 mg PO NEEDED PRN As needed 03/17/24 08/04/24 alprazolam 0.5 mg tablet 0.5 mg PO NEEDED PRN Anxiety 03/17/24 08/04/24 levothyroxine 150 mcg tablet 150 mcg PO DAILY 03/17/24 08/04/24 cholecalciferol (vitamin D3) 25 25 mcg PO DAILY 07/26/24 08/04/24 mcg (1,000 unit) capsule cyanocobalamin (vitamin B-12) 1,000 mcg PO DAILY 07/26/24 08/04/24 1,000 mcg capsule Allergies Allergy/AdvReac Type Severity Reaction Status Date / Time No Known Allergies Allergy Verified 07/26/24 10: [facility] Disclaimer: The information contained in this section may have been updated after the patient was seen, as this information can be updated by other users. 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 with enterocele UTI (urinary tract infection) Decreased libido without sexual dysfunction Hypothyroidism Lichen sclerosus Surgical History History of tonsillectomy History of knee replacement History of partial hysterectomy Family History Sister Cancer Breast Social History Smoking Status: Never smoker alcohol intake: never substance use type: denies use current occupational status: retired Travel in the last 8 weeks: None Have you lived/traveled outside [place] in past 30 days?: No Contact w/someone who lives/traveled outside [place] past 30 days?: No Exposure to someone with infectious disease in past 14 days?: No Do you have a fever (greater than 100.4 F or 38 C)?: No Have you tested positive for COVID-19: No Exposed to someone with COVID-19 in past 14 days?: No Do you have a sore throat?: No Do you have a cough?: No Do you have any weakness?: No Do you have any diarrhea?: No Are you experiencing any unusual bleeding?: No Do you have any muscle aches/pain?: No Do you have any abdominal pain?: No Are you experiencing loss of taste or smell?: No Other Medical History Have you received the Flu Vaccine for this season: Yes Have you received the Pneumonia Vaccine: Yes ROS Obtained: Yes All systems reviewed & no additional complaints except as documented Physical Exam General General appearance: alert and in no apparent distress Head Head exam: atraumatic and normocephalic Eye Eye exam: Present normal appearance, PERRL and EOMI ENT ENT exam: Present other (Grossly swollen and tender parotid glands bilaterally. No erythema, no purulence, no intraoral lesions or erythema.) Neck Neck exam: Present full ROM and other (No thyromegaly or tenderness, full range of motion without pain.) Chest Chest inspection: Present normal inspection and symmetric chest wall rise; Absent tenderness Respiratory Respiratory exam: Present normal lung sounds bilaterally; Absent respiratory distress Cardiovascular Cardiovascular exam: Present regular rate and normal rhythm Abdominal Exam Abdominal exam: Present soft; Absent distention, tenderness or guarding Extremities Exam Extremities exam: Present normal inspection; Absent edema or joint swelling Back Exam Back exam: Present normal inspection; Absent tenderness Neurological Exam Neurological exam: Present alert and oriented X3; Absent motor sensory deficit Psychiatric Psychiatric exam: Present normal affect and normal mood Skin Skin exam: Present warm, dry and normal color Lymphatic Lymphatic Findings: no adenopathy Medical Decision Making Medical Records Medical records reviewed: Yes I reviewed the patient's medical records. Screening: Per USPSTF and CDC recommendations, given the prevalence of disease in our region, it is our hospital?s policy to screen for HIV and viral Hepatitis for all patients aged 18 and over and those with ongoing risk factors. Ho Inquiry Pt receiving controlled substance: No Ho was queried for this patient: No Vital Signs: 08/04/24 05:37 08/04/24 05:54 08/04/24 06:01 Temperature 98.7 F 98.2 F Temperature Source Oral Oral Pulse Rate 80 86 Pulse Rate [Left] 91 H Respiratory Rate 20 18 Blood Pressure 138/62 138/62 Blood Pressure [Right Arm] 206/76 H Blood Pressure Mean [Right Arm] 119 02 Sat by Pulse Oximetry 97 96 99 Oxygen Delivery Method Room Air Room Air Room Air 08/04/24 07:48 Temperature 98.4 F Temperature Source Pulse Rate 85 Pulse Rate [Left] Respiratory Rate 18 Blood Pressure 144/88 H Blood Pressure [Right Arm] Blood Pressure Mean [Right Arm] 02 Sat by Pulse Oximetry Oxygen Delivery Method Lab Data Lab results reviewed: Yes I reviewed the patient's lab results. Lab Results 08/04/24 06:25: Chlamy pneumoniae PCR Not detected, Adenovirus (PCR) Not detected, B. pertussis DNA (PCR) Not detected, Coronavirus OC43 (PCR) Not detected, Coronavirus HKU1 (PCR) Not detected, Coronavirus 229E (PCR) Not detected, SARS-CoV-2 (PCR) Not detected, Coronavirus NL63 (PCR) Not detected, Human Metapneumovir PCR Not detected, Influenza A (H1) PCR Not detected, Influ A (H1N1/09) PCR Not detected, Influenza A (H3) PCR Not detected, Influenza Type A (PCR) Not detected, Influenza Type B (PCR) Not detected, M. pneumoniae (PCR) Not detected, Parainfluenza 1 (PCR) Not detected, Parainfluenza 2 (PCR) Not detected, Parainfluenza 3 (PCR) Not detected, Parainfluenza 4 (PCR) Not detected, RSV (PCR) Not detected, Entero/Rhino (PCR) Not detected 08/04/24 06:35: Sodium 136, Potassium 3.8, Chloride 97 L, Carbon Dioxide 32 H, Anion Gap 10.8, BUN 19 H, Creatinine 0.80, Estimated Creat Clear 78, Estimated GFR 71, Est GFR ( Amer) 85, Glucose 148 H, Calcium 8.8, Total Bilirubin 1.0, AST 24, ALT 18, Alkaline Phosphatase 86, Total Protein 6.9, Albumin 4.1, Globulin 2.8, Albumin/Globulin Ratio 1.5 08/04/24 07:02: WBC 15.6 H, RBC 5.28, Hgb 13.4, Hct 42.4, MCV 80.3 L, MCH 25.4 L , MCHC 31.6 L, RDW 14.0, Plt Count 262, MPV 10.0, Neut % (Auto) 86.6 H, Lymph % (Auto) 2.0 L, [place] % (Auto) 6.0, Eos % (Auto) 4.6, Baso % (Auto) 0.3, Neut # (Auto) 13.5 H, Lymph # (Auto) 0.3 L, [place] # (Auto) 0.9, Eos # (Auto) 0.7 H, Baso # (Auto) 0.1, Total Counted 100, Neutrophils % (Manual) 89 H, Band Neutrophils % 2.0, Lymphocytes % (Manual) 1 L, Atypical Lymphs % 1.0, Monocytes % (Manual) 5, Eosinophils % (Manual) 2, Platelet Estimate Normal, RBC Morphology Normal, Monoscreen Negative 08/04/24 07:02 08/04/24 06:35 Orders (Tests/Meds): ORDERS Category Date Time Status CBC w/Auto Diff [Complete Blood Count Auto Diff] Stat Lab 08/04/24 07:02 Completed CMP [Comprehensive Metabolic Panel] Stat Lab 08/04/24 06:35 Completed Full Resp Panel w/COVID ([facility]) Routine Lab 08/04/24 06:25 Completed Monoscreen (Rapid) Stat Lab 08/04/24 07:02 Completed Mumps Abs, IgG Stat Lab 08/04/24 07:02 Received Mumps Antibodies, IgM Stat Lab 08/04/24 07:02 Received Medical Decision Narrative: 73-year-old female with history of hypertension diabetes and hypothyroidism presents for 2 days of bilateral parotid gland swelling pain and xerostomia. History was obtained via interactive discussion with patient. On arrival, patient is [afebrile, hemodynamically stable, satting appropriately, alert, oriented x4, GCS 15], moving all extremities spontaneously. Full physical exam performed and significant for grossly visible parotid gland swelling with associated tenderness. No erythema or purulence, no intraoral lesions noted. Differential includes but is not limited to viral/bacterial parotiditis, mumps, mono,. Workup initiated including CBC CMP Monospot mumps antibody IgM and IgG full respiratory panel. On re-evaluation, patient [remains afebrile, HD stable.] Laboratory workup independently interpreted by me and significant for negative Monospot, negative viral panel, mild leukocytosis. Given patient history, exam and workup, patient's presentation most likely represents viral parotitis, specifically the mumps. Patient reports that she had a mumps as a child and this is very similar. No evidence of bacterial infection. No evidence of deep space infection such as Dorothy's or Lemierre's. Patient is generally well-appearing. Mumps IgG and IgM will likely be a send out test pending for some time. Patient was discharged in stable condition with return precautions and instructions to follow-up with PCP for further assessment as needed. Procedures Risk/Benefits of Procedure(s) Were Explained: Yes Critical Care Critical Care Time Critical Care Time: No
[2024-08-04 06:30] LABS: Adenovirus,PCR Not Detected (NotDetected); Bordetella Pertussis Not Detected (NotDetected); Chlamydophila Pneumoniae, PCR Not Detected (NotDetected); Coronavirus 19, PCR Not Detected (NotDetected); Coronavirus 229E Not Detected (NotDetected); Coronavirus NL63 Not Detected (NotDetected); Coronavirus OC43 Not Detected (NotDetected); Coronovirus HKU1,PCR Not Detected (NotDetected); Human Metapneumovirus Not Detected (NotDetected); Influenza A, PCR Not Detected (NotDetected); Influenza AH1, 2009 Not Detected (NotDetected); Influenza AH1, PCR Not Detected (NotDetected); Influenza AH3,PCR Not Detected (NotDetected); Influenza B, PCR Not Detected (NotDetected); Mycoplasma Pneumoniae, PCR Not Detected (NotDetected); Parainfluenza 1, PCR Not Detected (NotDetected); Parainfluenza 2, PCR Not Detected (NotDetected); Parainfluenza 3, PCR Not Detected (NotDetected); Parainfluenza 4, PCR Not Detected (NotDetected); Respiratory Syncytial Virus Not Detected (NotDetected); Rhinovirus/Enterovirus Not Detected (NotDetected)
[2024-08-04 07:03] LABS: Albumin Level 4.1 g/dl (3.5-5.0); Chloride 97 mmol/L (98-107); Potassium 3.8 mmoL/L (3.5-5.1); Sodium 136 mmol/L (136-145)
[2024-08-04 07:06] LABS: Alanine Aminotransferase 18 U/L (12-78); Albumin/Globulin Ratio 1.5 (1.1-1.8); Alkaline Phosphatase 86 U/L (38-126); Anion Gap 10.8 mEq/L (5-15); Aspartate Amino Transferase 24 U/L (14-36); Blood Urea Nitrogen 19 mg/dl (7-17); Carbon Dioxide 32 mmol/L (22.0-30.0); Creatinine Clearance Estimated 78 mL/min (50-200); Estimated Glomerular Filt Rate 71 ml/min (>60); GFR (African American) 85 ML/MIN (>60); Globulin 2.8 g/dL (1.3-3.2); Total Protein,Serum 6.9 g/dl (6.3-8.2)
--- NOTE | 2024-08-04 07:06 | PC.NURSE ---
THIS RN STRAIGHT STUCK PATIENT FOR LABS AFTER TECH UNSUCCESSFULLY TRIED X2. PT DENIES ANY COMPLAINTS. PROVIDER AWARE
[2024-08-04 07:07] LABS: Calcium 8.8 mg/dl (8.4-10.2); Glucose 148 mg/dl (74-100)
[2024-08-04 07:21] LABS: Basophils # 0.1 K/mm3 (0-0.2); Basophils % 0.3 % (0.1-2.0); Eosinophils # 0.7 K/mm3 (0.0-0.4); Eosinophils % 4.6 % (0.1-12.0); Hematocrit 42.4 % (37.0-47.0); Hemoglobin 13.4 g/dL (12.2-16.2); Lymphocytes # 0.3 K/mm3 (0.7-4.5); Mean Corpuscular HGB Conc 31.6 g/dL (31.8-35.4); Mean Corpuscular Hemoglobin 25.4 pg (27.0-31.2); Mean Corpuscular Volume 80.3 fl (81-99); Monocytes # 0.9 K/mm3 (0.1-1.0); Neutrophils # 13.5 K/mm3 (1.8-7.8); Neutrophils % 86.6 % (37.0-80.0); Platelet Count 262 K/mm3 (142-424); Red Blood Count 5.28 M/mm3 (4.20-5.40); White Blood Count 15.6 K/mm3 (4.8-10.8)
[2024-08-04 07:28] LABS: MANUAL DIFFERENTIAL MANUAL DIFFERENTIAL (MANUAL DIFF)
[2024-08-04 07:48] VITALS: BP 144/88; PULSE 85; RESP 18; TEMP 36.9; O2SAT 100
[2024-08-04 08:30] LABS: Monoscreen (Rapid) Negative (Negative)
[2024-08-04 10:06] LABS: Eosinophils % 2 % (0-3); Lymphocytes % 1 % (10-50); Monocytes % 5 % (2-9); Neutrophils % 89 % (42-76); RBC Morphology Normal; Total Cells Counted 100
[2024-08-04 10:07] LABS: Platelet Estimate Normal
[2024-09-05 16:21] LABS: Mumps Antibodies, IgM <0.80 AU (0.00-0.79)
== END 2024-08-04 07:54 | disposition home or self-care (01) ==
PROVIDERS: Emergency Provider Emergency Medicine; PCP Internal Medicine Adolescent Medicine
DX: K11.8 Other diseases of salivary glands (principal); R68.2 Dry mouth, unspecified; R51.9 Headache, unspecified; R50.9 Fever, unspecified; M27.2 Inflammatory conditions of jaws
CPT/HCPCS: 80053; 85007; 85025; 85027; 86318; 86735; 87633; 99283

== ENCOUNTER 2024-08-12 09:24 | Outpatient (CLI) | payer MEDICARE, OTHER, SELFPAY | END 2024-08-12 23:59 | disposition home or self-care (01) | LOC: LAB 09:25 | PROVIDERS: PCP Internal Medicine Adolescent Medicine; Visit Provider Internal Medicine Adolescent Medicine | DX: N39.0 Urinary tract infection, site not specified (principal) | CPT/HCPCS: 87086; 87088; 87186 ==